=== PATIENT | male | born 1985 | race Caucasian/White ===

== ENCOUNTER 2016-10-26 19:52 | Emergency (ER) | payer OTHER ==
[2016-10-26] MEDS ORDERED: cefTRIAXone SOD 1 GM VIAL (J0696) As Ordered ONE (22:35)
[2016-10-26] MEDS ORDERED: diphenhydrAMINE 25 MG CAP As Ordered ONE (22:35)
[2016-10-26 22:38] LABS: BASO % 0.6 % (0.0-1.0); EOS # 0.6 K/mm3 (0.0-0.50); EOS % 7.9 % (0.0-3.0); LARGE UNSTAINED CELL # 0.1 K/mm3 (0.0-0.4); LARGE UNSTAINED CELL % 1.8 % (0.0-4.0); LYMPH # 2.5 K/mm3 (1.5-4.5); LYMPH % 33.7 % (24.0-44.0); MEAN CORPUSCULAR HEMOGLOBIN 30.2 pg (27.0-33.0); MEAN CORPUSCULAR HGB CONC 35.4 g/dl (32.0-36.5); MEAN CORPUSCULAR VOLUME 85.5 fl (80.0-96.0); MONO # 0.4 K/mm3 (0.0-0.8); MONO % 5.7 % (0.0-5.0); NEUTROPHILS # 3.6 K/mm3 (1.8-7.7); NEUTROPHILS % 50.3 % (36.0-66.0); PLATELET COUNT, AUTOMATED 286 k/mm3 (150-450); RED CELL DISTRIBUTION WIDTH 12.4 % (11.5-14.5); WHITE BLOOD COUNT 7.1 K/mm3 (4.0-10.0)
[2016-10-26 23:00] LABS: BLOOD UREA NITROGEN 16 MG/DL (7-18); CREATININE FOR GFR 1.26 MG/DL (0.70-1.30); GLUCOSE, FASTING 106 MG/DL (70-105)
[2016-10-26 23:01] LABS: ANION GAP 8 MEQ/L (8-16); CALCIUM LEVEL 9.3 MG/DL (8.5-10.1); CARBON DIOXIDE LEVEL 30 MEQ/L (21-32); CHLORIDE LEVEL 104 MEQ/L (98-107); GLOMERULAR FILTRATION RATE > 60.0 (>60); SODIUM LEVEL 142 MEQ/L (136-145)
--- NOTE | 2016-10-26 23:45 | EDDOCDS ---
Physician Documentation [facility] Name: Zeferino Lebron Age: 31 yrs Sex: Male : 1985 Arrival Date: 10/26/2016 Time: 19:52 Bed I4 / M4 Private MD: Other - Complete Info On Cds Disposition: 10/26/16 23:36 Discharged to Home/Self Care. Impression: Rash and other nonspecific skin eruption - allergic reaction vs cellulitis. - Condition is Stable. - Discharge Instructions: Cellulitis, Rash. - Prescriptions for Benadryl 25 mg Oral Capsule - take 1 capsule by ORAL route every 6 hours As needed; 30 tablet. Keflex 500 mg Oral Capsule - take 1 capsule by ORAL route every 6 hours for 10 days; 40 capsule. - Medication Reconciliation, Local Pharmacy Hours form. - Follow up: Darline Boyd [facility]; When: 2 - 3 days; Reason: Recheck today's complaints. Follow up: Emergency Department; When: As needed; Reason: Fever > 102F, Worsening of conditions. - Problem is new. - Symptoms have improved. Historical: - Allergies: No known drug Allergies; - Home Meds: 1. lisinopril 5 mg Oral tab 1 tab once daily - PMHx: Hypertension; - PSHx: bilateral gynecomastic excision.; - Immunization history:: Last tetanus immunization: up to date. - Family history: Not pertinent. - Social history: Smoking status: Patient states was never smoker of tobacco. No barriers to communication noted, The patient speaks fluent German. - : The pt / caregiver states he / she is not on anticoagulants. Home medication list is obtained from the patient. - Exposure Risk Screening:: None identified. Vital Signs: 10/26 19:55 BP 156 / 66; Pulse 66; Resp 18 S; Temp 98.4(O); Pulse Ox 98% on R/A; Weight 99.79 kg / gr2 220 lbs (R); Height 6 ft. 0 in. (182.88 cm) (R); Pain 2/10; 23:44 BP 126 / 87; Pulse 51; Resp 18 S; Temp 97.0(O); Pulse Ox 97% on R/A; af2 19:55 Body Mass Index 29.84 (99.79 kg, 182.88 cm) gr2 MDM: 21:37 IV Saline Lock ordered. ar2 21:37 -Blood Culture (Adults Only), peripheral from different site, or from device/port/PICC ar2 etc. if present ordered. 21:37 diphenhydrAMINE 50 mg PO once ordered. ar2 21:37 cefTRIAXone 1 grams IVPB once over 30 mins; dilute in 50mL of NS or D5W ordered. ar2 21:39 CBC with Diff Ordered. EDMS 21:39 Lactic Acid (Calles tube on ice) Ordered. EDMS 21:39 MED Profile Ordered. EDMS 21:39 -Blood Culture Ordered. EDMS 21:44 BLOOD CULTURES Ordered. EDMS 21:53 -Blood Culture (Adults Only), peripheral from different site, or from device/port/PICC sew etc. if present complete. 22:44 CBC with Diff Reviewed. ar2 22:[address] [facility] 23:03 [facility] Payment Agreement was scanned into [employer] and attached to record. [facility] 23:27 MED Profile Reviewed. ar2 23:27 Lactic Acid (Calles tube on ice) Reviewed. ar2 Administered Medications: 22:55 Drug: diphenhydrAMINE 50 mg [diphenhydramine 25 mg capsule (2 caps)] Route: PO; [facility] 23:22 Follow up: Response: No Adverse Reaction af2 22:55 Drug: cefTRIAXone 1 grams Route: IVPB; Infused Over: 30 mins; Site: right antecubital; [facility] 23:19 Follow up: IV Status: Completed infusion jo3 23:22 Follow up: IV Status: Completed infusion af2 Signatures: Dispatcher [employer] Bibi Courtney RN RN jo3 Todd Hassan PA-C PA-C ar2 Cindy Lima Sandra [facility] Shawna Sierra RN RN af2 Elin Hickey RN [facility] The chart was reviewed and I authenticate all verbal orders and agree with the evaluation and treatment provided.Attachments: 23:03 [facility] Payment Agreement [facility] MTDD
--- NOTE | 2016-10-26 23:45 | EDDOCDS ---
Nurse's Notes [facility] Name: Zeferino Lebron Age: 31 yrs Sex: Male : 1985 Arrival Date: 10/26/2016 Time: 19:52 Bed I4 / M4 Private MD: Other - Complete Info On Cds Diagnosis: Rash and other nonspecific skin eruption-allergic reaction vs cellulitis Presentation: 10/26 19:58 Presenting complaint: Patient states: possible insect bite, erythema to left upper arm af2 and left upper thigh- concerned for cellulitis. states started 3-4 days ago. Adult Sepsis Screening: The patient does not have new or worsening altered mentation. Patient's respiratory rate is less than 22. Systolic blood pressure is greater than 100. Patient has a qSOFA score of 0- Negative Sepsis Screen. Suicide/Homicide risk assessment- the patient denies having any suicidal and/or homicidal ideations and does not present with any other emotional, behavioral or mental health complaints. 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 Transition of care: patient was not received from another setting of care. 19:58 Acuity: ANGEL Level 4 af2 19:58 Method Of Arrival: Walkin/Carried/Asstd af2 Triage Assessment: 20:00 Bite Description: Bite sustained to left arm and left leg by an unknown animal, Animal af2 Information: not applicable. General: Appears in no apparent distress. Pain: Denies pain. HIV screening NA for this visit Offered previously. Respiratory: Airway is patent Respiratory effort is even, unlabored. Derm: Skin is normal. 23:44 Bite Description: Animal Information: Vaccine status: is current. af2 Historical: - Allergies: No known drug Allergies; - Home Meds: 1. lisinopril 5 mg Oral tab 1 tab once daily - PMHx: Hypertension; - PSHx: bilateral gynecomastic excision.; - Immunization history:: Last tetanus immunization: up to date. - Family history: Not pertinent. - Social history: Smoking status: Patient states was never smoker of tobacco. No barriers to communication noted, The patient speaks fluent Italian. - : The pt / caregiver states he / she is not on anticoagulants. Home medication list is obtained from the patient. - Exposure Risk Screening:: None identified. Screenin:48 Screening information is obtained from the patient. Fall risk: No risks identified. jo3 Assistance ADL's: requires no assistance with activities of daily living. Abuse/DV Screen: The patient / caregiver reports he/she is: not in a situation that causes fear, pain or injury. Nutritional screening: No deficits noted. Advance Directives: There is no active DNR order. home support is adequate. Assessment: 22:48 General: Appears in no apparent distress, comfortable, Behavior is appropriate for age, jo3 cooperative, pleasant. Neurological: Level of Consciousness is awake, alert, Oriented to person, place, time. Cardiovascular: No deficits noted. Respiratory: Airway is patent Respiratory effort is even, unlabored. : No deficits noted. Derm: Skin is intact, Skin is pink, warm & dry. reddened areas to left upper thigh and beneath left upper arm. 23:22 General: Appears in no apparent distress, comfortable, Behavior is appropriate for age, af2 cooperative. Neurological: Level of Consciousness is awake, alert, Oriented to person, place, time. Respiratory: Airway is patent Respiratory effort is even, unlabored. Derm: Skin is pink, warm & dry. Vital Signs: 19:55 BP 156 / 66; Pulse 66; Resp 18 S; Temp 98.4(O); Pulse Ox 98% on R/A; Weight 99.79 kg gr2 (R); Height 6 ft. 0 in. (182.88 cm) (R); Pain 2/10; 23:44 BP 126 / 87; Pulse 51; Resp 18 S; Temp 97.0(O); Pulse Ox 97% on R/A; af2 19:55 Body Mass Index 29.84 (99.79 kg, 182.88 cm) gr2 Vitals: 19:55 Log In Time: October 26, 2016 at 19:55. gr2 ED Course: 19:54 Patient visited by Dillon Silverio. gr2 19:54 Other - Complete Info On Cds is Private Physician. gr2 19:54 Patient moved to Waiting gr2 19:57 Patient visited by Dillon Silverio. gr2 19:57 Patient moved to Pre RCE gr2 19:59 Triage Initiated af2 20:01 Patient visited by Shawna Sierra RN. af2 21:20 Patient moved to Triage 3 af2 21:29 [facility] ar2 21:29 Bertram Dumont DO is Attending Physician. ar2 21:29 Patient visited by Todd Hassan PA-C. ar2 22:15 Patient moved to I4 / [facility] 22:29 BLOOD CULTURES Sent. jo3 22:29 MED Profile Sent. jo3 22:29 Lactic Acid (Calles tube on ice) Sent. jo3 22:29 -Blood Culture Sent. jo3 22:29 CBC with Diff Sent. jo3 22:48 The patient / caregiver is instructed regarding the plan of care and ED course. jo3 22:48 Inserted saline lock: 18 gauge in right antecubital area. Labs drawn. (by ED staff). jo3 Sent per order to lab. 22:49 Patient visited by Bibi Roman RN. jo3 23:03 [facility] Payment Agreement was scanned into [employer] and attached to record. [facility] 23:23 Patient visited by Shawna Sierra RN. af2 23:31 [facility]. ar2 23:43 Discontinued IV lock intact, bleeding controlled, pressure dressing applied, No af2 redness/swelling at site. No procedures done that require assistance. Administered Medications: 22:55 Drug: diphenhydrAMINE 50 mg [diphenhydramine 25 mg capsule (2 caps)] Route: PO; [facility] 23:22 Follow up: Response: No Adverse Reaction af2 22:55 Drug: cefTRIAXone 1 grams Route: IVPB; Infused Over: 30 mins; Site: right antecubital; [facility] 23:19 Follow up: IV Status: Completed infusion jo3 23:22 Follow up: IV Status: Completed infusion af2 Order Results: Lab Order: CBC with Diff; SPEC'M 10/26/16 22:28 Test: WHITE BLOOD COUNT; Value: 7.1; Range: 4.0-10.0; Units: K/mm3; Status: F Test: RED BLOOD COUNT; Value: 5.06; Range: 4.30-6.10; Units: M/mm3; Status: F Test: HEMOGLOBIN; Value: 15.3; Range: 14.0-18.0; Units: g/dl; Status: F Test: HEMATOCRIT; Value: 43.3; Range: 42.0-52.0; Units: %; Status: F Test: MEAN CORPUSCULAR VOLUME; Value: 85.5; Range: 80.0-96.0; Units: fl; Status: F Test: MEAN CORPUSCULAR HEMOGLOBIN; Value: 30.2; Range: 27.0-33.0; Units: pg; Status: F Test: MEAN CORPUSCULAR HGB CONC; Value: 35.4; Range: 32.0-36.5; Units: g/dl; Status: F Test: RED CELL DISTRIBUTION WIDTH; Value: 12.4; Range: 11.5-14.5; Units: %; Status: F Test: PLATELET COUNT, AUTOMATED; Value: 286; Range: 150-450; Units: k/mm3; Status: F Test: NEUTROPHILS %; Value: 50.3; Range: 36.0-66.0; Units: %; Status: F Test: LYMPH %; Value: 33.7; Range: 24.0-44.0; Units: %; Status: F Test: MONO %; Value: 5.7; Range: 0.0-5.0; Abnormal: Above high normal; Units: %; Status: F Test: EOS %; Value: 7.9; Range: 0.0-3.0; Abnormal: Above high normal; Units: %; Status: F Test: BASO %; Value: 0.6; Range: 0.0-1.0; Units: %; Status: F Test: LARGE UNSTAINED CELL %; Value: 1.8; Range: 0.0-4.0; Units: %; Status: F Test: NEUTROPHILS #; Value: 3.6; Range: 1.8-7.7; Units: K/mm3; Status: F Test: LYMPH #; Value: 2.5; Range: 1.5-4.5; Units: K/mm3; Status: F Test: MONO #; Value: 0.4; Range: 0.0-0.8; Units: K/mm3; Status: F Test: EOS #; Value: 0.6; Range: 0.0-0.50; Abnormal: Above high normal; Units: K/mm3; Status: F Test: BASO #; Value: 0.0; Range: 0.0-0.2; Units: K/mm3; Status: F Test: LARGE UNSTAINED CELL #; Value: 0.1; Range: 0.0-0.4; Units: K/mm3; Status: F Lab Order: Lactic Acid (Calles tube on ice); SPEC'M 10/26/16 22:28 Test: LACTIC ACID SEPSIS PROTOCOL; Value: 1.1; Range: 0.4-2.0; Units: MMOL/L; Status: F Lab Order: MED Profile; SPEC'M 10/26/16 22:28 Test: GLUCOSE, FASTING; Value: 106; Range: 70-105; Abnormal: Above high normal; Units: MG/DL; Status: F Test: BLOOD UREA NITROGEN; Value: 16; Range: 7-18; Units: MG/DL; Status: F Test: CREATININE FOR GFR; Value: 1.26; Range: 0.70-1.30; Units: MG/DL; Status: F Test: GLOMERULAR FILTRATION RATE; Value: > 60.0; Range: >60; Status: F Test: SODIUM LEVEL; Value: 142; Range: 136-145; Units: MEQ/L; Status: F Test: POTASSIUM SERUM; Value: 4.0; Range: 3.5-5.1; Units: MEQ/L; Status: F Test: CHLORIDE LEVEL; Value: 104; Range: 98-107; Units: MEQ/L; Status: F Test: CARBON DIOXIDE LEVEL; Value: 30; Range: 21-32; Units: MEQ/L; Status: F Test: ANION GAP; Value: 8; Range: 8-16; Units: MEQ/L; Status: F Test: CALCIUM LEVEL; Value: 9.3; Range: 8.5-10.1; Units: MG/DL; Status: F Test Note: ; Units are mL/min/1.73 m2 Chronic Kidney Disease Staging per NKF: Stage I & II GFR >=60 Normal to Mildly Decreased Stage III GFR 30-59 Moderately Decreased Stage IV GFR 15-29 Severely Decreased Stage V GFR <15 Very Little GFR Left ESRD GFR <15 on GRILL COOK Outcome: 23:36 Discharge ordered by Provider. ar2 23:43 Discharge Assessment: Patient awake, alert and oriented x 3. No cognitive and/or af2 functional deficits noted. Patient verbalized understanding of disposition instructions. patient administered narcotics - no. The following High Risk Discharge criteria are identified: None. Discharged to home ambulatory. Condition: stable. Discharge instructions given to patient, Instructed on discharge instructions, follow up and referral plans. medication usage, Demonstrated understanding of instructions, medications, Pt was receptive of discharge instructions/ teaching. No special radiology studies were completed. Property :Personal belongings accompany Pt. 23:45 Patient left the ED. af2 Signatures: Bibi Roman RN RN jo3 Todd Hassan PA-C PA-C ar2 Elin Hickey RN RN karena Clarence, Dillon Stokes 2 Brigitte Trotter AmberRN RN af2 MTDD
--- NOTE | 2016-10-29 00:46 | EDDOCDS ---
Nurse's Notes [facility] Name: Zeferino Lebron Age: 31 yrs Sex: Male : 1985 Arrival Date: 10/26/2016 Time: 19:52 Bed I4 / M4 Private MD: Other - Complete Info On Cds Diagnosis: Rash and other nonspecific skin eruption-allergic reaction vs cellulitis Presentation: 10/26 19:58 Presenting complaint: Patient states: possible insect bite, erythema to left upper arm af2 and left upper thigh- concerned for cellulitis. states started 3-4 days ago. Adult Sepsis Screening: The patient does not have new or worsening altered mentation. Patient's respiratory rate is less than 22. Systolic blood pressure is greater than 100. Patient has a qSOFA score of 0- Negative Sepsis Screen. Suicide/Homicide risk assessment- the patient denies having any suicidal and/or homicidal ideations and does not present with any other emotional, behavioral or mental health complaints. 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 Transition of care: patient was not received from another setting of care. 19:58 Acuity: ANGEL Level 4 af2 19:58 Method Of Arrival: Walkin/Carried/Asstd af2 Triage Assessment: 20:00 Bite Description: Bite sustained to left arm and left leg by an unknown animal, Animal af2 Information: not applicable. General: Appears in no apparent distress. Pain: Denies pain. HIV screening NA for this visit Offered previously. Respiratory: Airway is patent Respiratory effort is even, unlabored. Derm: Skin is normal. 23:44 Bite Description: Animal Information: Vaccine status: is current. af2 Historical: - Allergies: No known drug Allergies; - Home Meds: 1. lisinopril 5 mg Oral tab 1 tab once daily - PMHx: Hypertension; - PSHx: bilateral gynecomastic excision.; - Immunization history:: Last tetanus immunization: up to date. - Family history: Not pertinent. - Social history: Smoking status: Patient states was never smoker of tobacco. No barriers to communication noted, The patient speaks fluent Yoruba. - : The pt / caregiver states he / she is not on anticoagulants. Home medication list is obtained from the patient. - Exposure Risk Screening:: None identified. Screenin:48 Screening information is obtained from the patient. Fall risk: No risks identified. jo3 Assistance ADL's: requires no assistance with activities of daily living. Abuse/DV Screen: The patient / caregiver reports he/she is: not in a situation that causes fear, pain or injury. Nutritional screening: No deficits noted. Advance Directives: There is no active DNR order. home support is adequate. Assessment: 22:48 General: Appears in no apparent distress, comfortable, Behavior is appropriate for age, jo3 cooperative, pleasant. Neurological: Level of Consciousness is awake, alert, Oriented to person, place, time. Cardiovascular: No deficits noted. Respiratory: Airway is patent Respiratory effort is even, unlabored. : No deficits noted. Derm: Skin is intact, Skin is pink, warm & dry. reddened areas to left upper thigh and beneath left upper arm. 23:22 General: Appears in no apparent distress, comfortable, Behavior is appropriate for age, af2 cooperative. Neurological: Level of Consciousness is awake, alert, Oriented to person, place, time. Respiratory: Airway is patent Respiratory effort is even, unlabored. Derm: Skin is pink, warm & dry. Vital Signs: 19:55 BP 156 / 66; Pulse 66; Resp 18 S; Temp 98.4(O); Pulse Ox 98% on R/A; Weight 99.79 kg gr2 (R); Height 6 ft. 0 in. (182.88 cm) (R); Pain 2/10; 23:44 BP 126 / 87; Pulse 51; Resp 18 S; Temp 97.0(O); Pulse Ox 97% on R/A; af2 19:55 Body Mass Index 29.84 (99.79 kg, 182.88 cm) gr2 Vitals: 19:55 Log In Time: October 26, 2016 at 19:55. gr2 ED Course: 19:54 Patient visited by Dillon Silverio. gr2 19:54 Other - Complete Info On Cds is Private Physician. gr2 19:54 Patient moved to Waiting gr2 19:57 Patient visited by Dillon Silverio. gr2 19:57 Patient moved to Pre RCE gr2 19:59 Triage Initiated af2 20:01 Patient visited by Shawna Sierra RN. af2 21:20 Patient moved to Triage 3 af2 21:29 [facility]. ar2 21:29 Bertram Dumont DO is Attending Physician. ar2 21:29 Patient visited by Todd Hassan PA-C. ar2 22:15 Patient moved to I4 / [facility] 22:29 BLOOD CULTURES Sent. jo3 22:29 MED Profile Sent. jo3 22:29 Lactic Acid (Calles tube on ice) Sent. jo3 22:29 -Blood Culture Sent. jo3 22:29 CBC with Diff Sent. jo3 22:48 The patient / caregiver is instructed regarding the plan of care and ED course. jo3 22:48 Inserted saline lock: 18 gauge in right antecubital area. Labs drawn. (by ED staff). jo3 Sent per order to lab. 22:49 Patient visited by Bibi Roman RN. jo3 23:03 [facility] Payment Agreement was scanned into [employer] and attached to record. [facility] 23:23 Patient visited by Shawna Sierra RN. af2 23:31 [facility] ar2 23:43 Discontinued IV lock intact, bleeding controlled, pressure dressing applied, No af2 redness/swelling at site. No procedures done that require assistance. 10/27 11:41 T-Sheet-- Draft Copy was scanned into [employer] and attached to record. gb Administered Medications: 10/26 22:55 Drug: diphenhydrAMINE 50 mg [diphenhydramine 25 mg capsule (2 caps)] Route: PO; [facility] 23:22 Follow up: Response: No Adverse Reaction af2 22:55 Drug: cefTRIAXone 1 grams Route: IVPB; Infused Over: 30 mins; Site: right antecubital; [facility] 23:19 Follow up: IV Status: Completed infusion jo3 23:22 Follow up: IV Status: Completed infusion af2 Order Results: Lab Order: CBC with Diff; SPEC'M 10/26/16 22:28 Test: WHITE BLOOD COUNT; Value: 7.1; Range: 4.0-10.0; Units: K/mm3; Status: F Test: RED BLOOD COUNT; Value: 5.06; Range: 4.30-6.10; Units: M/mm3; Status: F Test: HEMOGLOBIN; Value: 15.3; Range: 14.0-18.0; Units: g/dl; Status: F Test: HEMATOCRIT; Value: 43.3; Range: 42.0-52.0; Units: %; Status: F Test: MEAN CORPUSCULAR VOLUME; Value: 85.5; Range: 80.0-96.0; Units: fl; Status: F Test: MEAN CORPUSCULAR HEMOGLOBIN; Value: 30.2; Range: 27.0-33.0; Units: pg; Status: F Test: MEAN CORPUSCULAR HGB CONC; Value: 35.4; Range: 32.0-36.5; Units: g/dl; Status: F Test: RED CELL DISTRIBUTION WIDTH; Value: 12.4; Range: 11.5-14.5; Units: %; Status: F Test: PLATELET COUNT, AUTOMATED; Value: 286; Range: 150-450; Units: k/mm3; Status: F Test: NEUTROPHILS %; Value: 50.3; Range: 36.0-66.0; Units: %; Status: F Test: LYMPH %; Value: 33.7; Range: 24.0-44.0; Units: %; Status: F Test: MONO %; Value: 5.7; Range: 0.0-5.0; Abnormal: Above high normal; Units: %; Status: F Test: EOS %; Value: 7.9; Range: 0.0-3.0; Abnormal: Above high normal; Units: %; Status: F Test: BASO %; Value: 0.6; Range: 0.0-1.0; Units: %; Status: F Test: LARGE UNSTAINED CELL %; Value: 1.8; Range: 0.0-4.0; Units: %; Status: F Test: NEUTROPHILS #; Value: 3.6; Range: 1.8-7.7; Units: K/mm3; Status: F Test: LYMPH #; Value: 2.5; Range: 1.5-4.5; Units: K/mm3; Status: F Test: MONO #; Value: 0.4; Range: 0.0-0.8; Units: K/mm3; Status: F Test: EOS #; Value: 0.6; Range: 0.0-0.50; Abnormal: Above high normal; Units: K/mm3; Status: F Test: BASO #; Value: 0.0; Range: 0.0-0.2; Units: K/mm3; Status: F Test: LARGE UNSTAINED CELL #; Value: 0.1; Range: 0.0-0.4; Units: K/mm3; Status: F Lab Order: -Blood Culture; SPEC10/26/16: Test: BLOOD CULTURE; Value: No growth after 24 hours . All specimens observed; Status: F Test: BLOOD CULTURE; Value: for 5 days. Results final at that time.; Status: F Test: BLOOD CULTURE; Value: No Growth after 48 hours. All Specimens observed; Status: F Test: BLOOD CULTURE; Value: for 7 days. Results final at that time.; Status: F Lab Order: Lactic Acid (Calles tube on ice); SPEC10/26/16: Test: LACTIC ACID SEPSIS PROTOCOL; Value: 1.1; Range: 0.4-2.0; Units: MMOL/L; Status: F Lab Order: MED Profile; 10/26/16:28 Test: GLUCOSE, FASTING; Value: 106; Range: 70-105; Abnormal: Above high normal; Units: MG/DL; Status: F Test: BLOOD UREA NITROGEN; Value: 16; Range: 7-18; Units: MG/DL; Status: F Test: CREATININE FOR GFR; Value: 1.26; Range: 0.70-1.30; Units: MG/DL; Status: F Test: GLOMERULAR FILTRATION RATE; Value: > 60.0; Range: >60; Status: F Test: SODIUM LEVEL; Value: 142; Range: 136-145; Units: MEQ/L; Status: F Test: POTASSIUM SERUM; Value: 4.0; Range: 3.5-5.1; Units: MEQ/L; Status: F Test: CHLORIDE LEVEL; Value: 104; Range: 98-107; Units: MEQ/L; Status: F Test: CARBON DIOXIDE LEVEL; Value: 30; Range: 21-32; Units: MEQ/L; Status: F Test: ANION GAP; Value: 8; Range: 8-16; Units: MEQ/L; Status: F Test: CALCIUM LEVEL; Value: 9.3; Range: 8.5-10.1; Units: MG/DL; Status: F Test Note: ; Units are mL/min/1.73 m2 Chronic Kidney Disease Staging per NKF: Stage I & II GFR >=60 Normal to Mildly Decreased Stage III GFR 30-59 Moderately Decreased Stage IV GFR 15-29 Severely Decreased Stage V GFR <15 Very Little GFR Left ESRD GFR <15 on [employer] Lab Order: BLOOD CULTURES; SPEC'M 10/26/16 22:50 Test: BLOOD CULTURE; Value: No growth after 24 hours . All specimens observed; Status: F Test: BLOOD CULTURE; Value: for 5 days. Results final at that time.; Status: F Test: BLOOD CULTURE; Value: No Growth after 48 hours. All Specimens observed; Status: F Test: BLOOD CULTURE; Value: for 7 days. Results final at that time.; Status: F Outcome: 23:36 Discharge ordered by Provider. ar2 23:43 Discharge Assessment: Patient awake, alert and oriented x 3. No cognitive and/or af2 functional deficits noted. Patient verbalized understanding of disposition instructions. patient administered narcotics - no. The following High Risk Discharge criteria are identified: None. Discharged to home ambulatory. Condition: stable. Discharge instructions given to patient, Instructed on discharge instructions, follow up and referral plans. medication usage, Demonstrated understanding of instructions, medications, Pt was receptive of discharge instructions/ teaching. No special radiology studies were completed. Property :Personal belongings accompany Pt. 23:45 Patient left the ED. af2 Signatures: Elda Henry, Reg Reg Bibi Santiago,RN RN jo3 Todd Hassan, TOYA PAMary ar2 Elin Hickey,Cindy Pino RN, [place] 2 Brigitte Trotter Amber, RN RN af2 Chart Complete MTDD
--- NOTE | 2016-10-29 00:46 | EDDOCDS ---
Physician Documentation [facility] Name: Zeferino Lebron Age: 31 yrs Sex: Male : 1985 Arrival Date: 10/26/2016 Time: 19:52 Bed I4 / M4 Private MD: Other - Complete Info On Cds Disposition: 10/26/16 23:36 Discharged to Home/Self Care. Impression: Rash and other nonspecific skin eruption - allergic reaction vs cellulitis. - Condition is Stable. - Discharge Instructions: Cellulitis, Rash. - Prescriptions for Benadryl 25 mg Oral Capsule - take 1 capsule by ORAL route every 6 hours As needed; 30 tablet. Keflex 500 mg Oral Capsule - take 1 capsule by ORAL route every 6 hours for 10 days; 40 capsule. - Medication Reconciliation, Local Pharmacy Hours form. - Follow up: Darline Boyd [facility]; When: 2 - 3 days; Reason: Recheck today's complaints. Follow up: Emergency Department; When: As needed; Reason: Fever > 102F, Worsening of conditions. - Problem is new. - Symptoms have improved. Historical: - Allergies: No known drug Allergies; - Home Meds: 1. lisinopril 5 mg Oral tab 1 tab once daily - PMHx: Hypertension; - PSHx: bilateral gynecomastic excision.; - Immunization history:: Last tetanus immunization: up to date. - Family history: Not pertinent. - Social history: Smoking status: Patient states was never smoker of tobacco. No barriers to communication noted, The patient speaks fluent Bulgarian. - : The pt / caregiver states he / she is not on anticoagulants. Home medication list is obtained from the patient. - Exposure Risk Screening:: None identified. Vital Signs: 10/26 19:55 BP 156 / 66; Pulse 66; Resp 18 S; Temp 98.4(O); Pulse Ox 98% on R/A; Weight 99.79 kg / gr2 220 lbs (R); Height 6 ft. 0 in. (182.88 cm) (R); Pain 2/10; 23:44 BP 126 / 87; Pulse 51; Resp 18 S; Temp 97.0(O); Pulse Ox 97% on R/A; af2 19:55 Body Mass Index 29.84 (99.79 kg, 182.88 cm) gr2 MDM: 21:37 IV Saline Lock ordered. ar2 21:37 -Blood Culture (Adults Only), peripheral from different site, or from device/port/PICC ar2 etc. if present ordered. 21:37 diphenhydrAMINE 50 mg PO once ordered. ar2 21:37 cefTRIAXone 1 grams IVPB once over 30 mins; dilute in 50mL of NS or D5W ordered. ar2 21:39 CBC with Diff Ordered. EDMS 21:39 Lactic Acid (Calles tube on ice) Ordered. EDMS 21:39 MED Profile Ordered. EDMS 21:39 -Blood Culture Ordered. EDMS 21:44 BLOOD CULTURES Ordered. EDMS 21:53 -Blood Culture (Adults Only), peripheral from different site, or from device/port/PICC sew etc. if present complete. 22:44 CBC with Diff Reviewed. ar2 22:52 Financial registration complete. [facility] 23:03 [facility] Payment Agreement was scanned into [employer] and attached to record. [facility] 23:27 MED Profile Reviewed. ar2 23:27 Lactic Acid (Calles tube on ice) Reviewed. [facility] 10/27 11:41 T-Sheet-- Draft Copy was scanned into [employer] and attached to record. gb Administered Medications: 10/26 22:55 Drug: diphenhydrAMINE 50 mg [diphenhydramine 25 mg capsule (2 caps)] Route: PO; [facility] 23:22 Follow up: Response: No Adverse Reaction af2 22:55 Drug: cefTRIAXone 1 grams Route: IVPB; Infused Over: 30 mins; Site: right antecubital; [facility] 23:19 Follow up: IV Status: Completed infusion jo3 23:22 Follow up: IV Status: Completed infusion af2 Signatures: Dispatcher [employer] EDMS Elda Henry, Reg Reg Bibi Santiago RN RN jo3 Todd Hassan PA-C PA-C ar2 Cindy Lima Sandra [facility] Shawna Sierra RN RN af2 Elin Hickey RN [facility] The chart was reviewed and I authenticate all verbal orders and agree with the evaluation and treatment provided.Attachments: 23:03 [facility] Payment Agreement [facility] 10/27 11:41 T-Sheet-- Draft Copy Chart Complete MTDD
--- NOTE | 2016-10-29 00:46 | EDDOCDS ---
Physician Documentation [facility] Name: Zeferino Lebron Age: 31 yrs Sex: Male : 1985 Arrival Date: 10/26/2016 Time: 19:52 Bed I4 / M4 Private MD: Other - Complete Info On Cds Disposition: 10/26/16 23:36 Discharged to Home/Self Care. Impression: Rash and other nonspecific skin eruption - allergic reaction vs cellulitis. - Condition is Stable. - Discharge Instructions: Cellulitis, Rash. - Prescriptions for Benadryl 25 mg Oral Capsule - take 1 capsule by ORAL route every 6 hours As needed; 30 tablet. Keflex 500 mg Oral Capsule - take 1 capsule by ORAL route every 6 hours for 10 days; 40 capsule. - Medication Reconciliation, Local Pharmacy Hours form. - Follow up: Dar[facility]; When: 2 - 3 days; Reason: Recheck today's complaints. Follow up: Emergency Department; When: As needed; Reason: Fever > 102F, Worsening of conditions. - Problem is new. - Symptoms have improved. Historical: - Allergies: No known drug Allergies; - Home Meds: 1. lisinopril 5 mg Oral tab 1 tab once daily - PMHx: Hypertension; - PSHx: bilateral gynecomastic excision.; - Immunization history:: Last tetanus immunization: up to date. - Family history: Not pertinent. - Social history: Smoking status: Patient states was never smoker of tobacco. No barriers to communication noted, The patient speaks fluent Bengali. - : The pt / caregiver states he / she is not on anticoagulants. Home medication list is obtained from the patient. - Exposure Risk Screening:: None identified. Vital Signs: 10/26 19:55 BP 156 / 66; Pulse 66; Resp 18 S; Temp 98.4(O); Pulse Ox 98% on R/A; Weight 99.79 kg / gr2 220 lbs (R); Height 6 ft. 0 in. (182.88 cm) (R); Pain 2/10; 23:44 BP 126 / 87; Pulse 51; Resp 18 S; Temp 97.0(O); Pulse Ox 97% on R/A; af2 19:55 Body Mass Index 29.84 (99.79 kg, 182.88 cm) gr2 MDM: 21:37 IV Saline Lock ordered. ar2 21:37 -Blood Culture (Adults Only), peripheral from different site, or from device/port/PICC ar2 etc. if present ordered. 21:37 diphenhydrAMINE 50 mg PO once ordered. ar2 21:37 cefTRIAXone 1 grams IVPB once over 30 mins; dilute in 50mL of NS or D5W ordered. ar2 21:39 CBC with Diff Ordered. EDMS 21:39 Lactic Acid (Calles tube on ice) Ordered. EDMS 21:39 MED Profile Ordered. EDMS 21:39 -Blood Culture Ordered. EDMS 21:44 BLOOD CULTURES Ordered. EDMS 21:53 -Blood Culture (Adults Only), peripheral from different site, or from device/port/PICC sew etc. if present complete. 22:44 CBC with Diff Reviewed. ar2 22:52 Financial registration complete. [facility] 23:03 [facility] Payment Agreement was scanned into [employer] and attached to record. [facility] 23:27 MED Profile Reviewed. ar2 23:27 Lactic Acid (Calles tube on ice) Reviewed. [facility] 10/27 11:41 T-Sheet-- Draft Copy was scanned into [employer] and attached to record. gb Administered Medications: 10/26 22:55 Drug: diphenhydrAMINE 50 mg [diphenhydramine 25 mg capsule (2 caps)] Route: PO; [facility] 23:22 Follow up: Response: No Adverse Reaction af2 22:55 Drug: cefTRIAXone 1 grams Route: IVPB; Infused Over: 30 mins; Site: right antecubital; [facility] 23:19 Follow up: IV Status: Completed infusion jo3 23:22 Follow up: IV Status: Completed infusion af2 Signatures: Dispatcher [employer] EDMS Elda Henry, Reg Reg Bibi Santiago RN RN jo3 Todd Hassan PA-C PA-C ar2 Cindy Lima Sandra [facility] Shawna Sierra RN RN af2 Elin Hickey RN [facility] The chart was reviewed and I authenticate all verbal orders and agree with the evaluation and treatment provided.Attachments: 23:03 [facility] Payment Agreement [facility] 10/27 11:41 T-Sheet-- Draft Copy Chart Complete MTDD
== END 2016-10-26 23:45 | disposition home or self-care (01) ==
LOC: M ED 19:52
DX: R21 Rash and other nonspecific skin eruption (principal); I10 Essential (primary) hypertension; Z79.899 Other long term (current) drug therapy
CPT/HCPCS: 36415; 80048; 83605; 85025; 87040; 96365; 99284; J0696

== ENCOUNTER → 2017-01-12 | Outpatient (REF) | payer OTHER | LOC: M SMT 09:15 | PROVIDERS: ATTEND Urology | DX: Z30.2 Encounter for sterilization (principal) ==

== ENCOUNTER → 2017-04-09 | Outpatient (CLI) | payer OTHER ==
--- NOTE | 2017-04-10 08:11 | REP ---
Clinical: Abnormal lung findings on recent CT. Comparison: CT dated 03/20/2017 . Technique: PA and lateral. Findings: The mediastinum and cardiac silhouette are normal. The lung richey are clear and without acute consolidation, effusion, or pneumothorax. The skeletal structures are intact and normal. Findings on CT including bibasilar atelectasis and small effusion appear to have resolved based on current x-ray. Impression: 1. No acute cardiopulmonary process. Signed by Moses Lee MD 04/10/2017 03:01 A
== END ==
LOC: M SMT 10:14
PROVIDERS: ATTEND Thoracic Surgery (Cardiothoracic Vascular Surgery)
DX: R91.8 Other nonspecific abnormal finding of lung field (principal)

== ENCOUNTER 2018-07-12 15:53 | Emergency (ER) | payer OTHER ==
[2018-07-12 19:23] LABS: BASO % 0.4 % (0.0-1.0); EOS # 0.1 10^3/uL (0.0-0.50); EOS % 2.2 % (0.0-3.0); HEMATOCRIT 46.3 % (42.0-52.0); HEMOGLOBIN 15.9 g/dl (13.5-17.5); IMMATURE GRANULOCYTE % 0.4 % (0-3.0); LYMPH # 2.2 10^3/uL (1.5-4.5); LYMPH % 44.1 % (24.0-44.0); MEAN CORPUSCULAR HEMOGLOBIN 29.6 pg (27.0-33.0); MEAN CORPUSCULAR HGB CONC 34.3 g/dl (32.0-36.5); MEAN CORPUSCULAR VOLUME 86.2 fl (80.0-96.0); MONO # 0.5 10^3/uL (0.0-0.8); MONO % 9.3 % (0.0-5.0); NEUTROPHILS # 2.1 10^3/uL (1.8-7.7); NEUTROPHILS % 43.6 % (36.0-66.0); PLATELET COUNT, AUTOMATED 267 10^3/uL (150-450); RED BLOOD COUNT 5.37 10^6/uL (4.30-6.10); RED CELL DISTRIBUTION WIDTH 12.3 % (11.5-14.5); WHITE BLOOD COUNT 4.9 10^3/uL (4.0-10.0)
[2018-07-12 19:45] LABS: ANION GAP 7 MEQ/L (8-16); BLOOD UREA NITROGEN 11 MG/DL (7-18); CALCIUM LEVEL 9.3 MG/DL (8.5-10.1); CARBON DIOXIDE LEVEL 30 MEQ/L (21-32); CHLORIDE LEVEL 103 MEQ/L (98-107); CREATININE FOR GFR 1.42 MG/DL (0.70-1.30); GLOMERULAR FILTRATION RATE > 60.0 (>60); GLUCOSE, FASTING 89 MG/DL (70-100); POTASSIUM SERUM 3.9 MEQ/L (3.5-5.1); SODIUM LEVEL 140 MEQ/L (136-145)
== END 2018-07-12 20:31 | disposition home or self-care (01) ==
LOC: M ED 15:53
DX: R20.2 Paresthesia of skin (principal); M51.27 Other intervertebral disc displacement, lumbosacral region; I10 Essential (primary) hypertension; Z79.899 Other long term (current) drug therapy
CPT/HCPCS: 72131